=== PATIENT | female | born 1960 | race Asian ===

== ENCOUNTER 2016-10-11 08:24 | Day surgery (SDC) | payer OTHER ==
[~2016-10-11] VITALS: Ht 160 cm; Wt 73.2 kg
[~2016-10-11 08:24] MED LIST: ASPI81 PO; CYAN250010 PO; FentaNYL CITRATE-PF 100 MCG/2 ML VIAL IVP ONE; ISON100 PO; LOSA50TA37 PO; METF10002 PO; MIDAZOLAM HCL 2 MG/2 ML VIAL IVP ONE; SITA50 PO; ZOLP5 PO
[2016-10-11] MEDS ORDERED: DICLOFENAC SODIUM 0.1% 2.5 ML OPHTHALMIC SOLUTION ONE (08:42)
[2016-10-11] MEDS ORDERED: MOXIFLOXACIN HCL 0.5% 3 ML OPHTHALMIC SOLUTION ONE (08:42)
[2016-10-11] MEDS ORDERED: RINGERS SOLUTION,LACTATED 500 ML IV ONE ×2 (08:42→09:30)
[2016-10-11] MEDS ORDERED: MOXIFLOXACIN HCL 0.5% 3 ML OPHTHALMIC SOLUTION OD ONE (09:30)
[2016-10-11] MEDS ORDERED: DICLOFENAC SODIUM 0.1% 2.5 ML OPHTHALMIC SOLUTION OD ONE (09:30)
[2016-10-11 09:47] LABS: GLUCOSE,POINT OF CARE 141 MG/DL (70-110)
[2016-10-11] MEDS ORDERED: MitoMYcin 0.2 MG/VIAL KIT FOR OPHTHALMIC USE OS ONE (11:45)
[2016-10-11] MEDS ORDERED: NEOMYCIN/POLYMYXIN B/DEXAMETH 3.5 GM OPHTHALMIC OINTMENT OD ONE (17:34)
[2016-10-11] MEDS ORDERED: POVIDONE-IODINE 10% 15 ML SOLUTION UD TP ONE (17:34)
[2016-10-11] MEDS ORDERED: TETRACAINE HCL VISCOUS 0.5% 0.6 ML OPHTHALMIC SOLUTION OD ONE (17:34)
[2016-10-11] MEDS ORDERED: LIDOCAINE HCL/PF 1% 2 ML VIAL IM ONE (17:34)
== END 2016-10-11 12:55 | disposition home or self-care (01) ==
LOC: SURGERY 08:24
PROVIDERS: ATTEND Specialist
DX: E11.39 Type 2 diabetes mellitus with other diabetic ophthalmic complication (principal); H11.051 Peripheral pterygium, progressive, right eye; I10 Essential (primary) hypertension; Z85.3 Personal history of malignant neoplasm of breast; Z92.21 Personal history of antineoplastic chemotherapy; Z98.890 Other specified postprocedural states
CPT/HCPCS: 65426; 82962; 88304; 93005; C1768; J2250; J3010; J3490; J7120